=== PATIENT | male | born 1935 | race Caucasian/White ===

== ENCOUNTER → 2020-07-02 12:47 | Outpatient (CLI) | payer MEDICARE, OTHER, SELFPAY ==
--- NOTE | 2020-07-02 12:49 | CDU_ITS ---
Reason For Study: CAROTID STENOSIS, PREV RT CEA Rt. Velocities/BP Lt. Velocities/BP Prox CCA 119.8/15.7 cm/sec. Prox CCA 149.0/24.8 cm/sec. Mid CCA 110.7/13.9 cm/sec. Mid CCA 116.2/21.2 cm/sec. Dist CCA 134.3/12.0 cm/sec. Dist CCA 121.6/19.4 cm/sec. Prox ICA 143.4/19.3 cm/sec. Prox ICA 114.3/24.8 cm/sec. Mid ICA 94.1/26.6 cm/sec. Mid ICA 152.7/37.6 cm/sec. Dist ICA 83.0/16.7 cm/sec. Dist ICA 183.5/38.6 cm/sec. Rt. ICA/CCA = 143.4/134.3=1.1. Lt. ICA/CCA = 183.5/149.0=1.2. Prox ECA 134.3/8.4 cm/sec. Prox ECA 182.8/9.4 cm/sec. Rt. Vert. 52.6/10.9 cm/sec. Lt. Vert. 87.1/15.8 cm/sec. Right Extracranial There is homogeneous, smooth atherosclerotic plaque noted in the right common carotid artery. There is homogeneous, smooth atherosclerotic plaque noted in the right internal carotid artery. There is heterogeneous, irregular atherosclerotic plaque noted in the right external carotid artery. Antegrade flow is noted in the right vertebral artery. Left Extracranial There is heterogeneous, irregular atherosclerotic plaque noted in the left common carotid artery. There is heterogeneous, irregular atherosclerotic plaque noted in the left internal carotid artery. There is homogeneous, smooth atherosclerotic plaque noted in the left external carotid artery. Antegrade flow is noted in the left vertebral artery. There is heterogeneous, irregular atherosclerotic plaque noted in the left bulb. Procedure Carotid Duplex [id number]. The exam was diagnostic. Exam performed in department. Interpretation Summary Postoperative changes of the right carotid bulb and proximal internal carotid artery with smooth plaque identified and 50 to 69% stenosis. No flow turbulence is identified this is likely postoperative changes. Less than 50% stenosis right external carotid Irregular calcific plaque with shadowing at the left carotid bulb and proximal internal carotid with 50 to 69% stenosis. Less than 50% stenosis left external carotid Patent and antegrade vertebrals bilaterally Ordering Physician: Karen Davis Referring Physician: Karen Davis Performed By: Tanya Noe, MARY, RVT
--- NOTE | 2020-07-02 12:49 | ECHOCS_ITS ---
Reason For Study: Aortic Stenosis Procedure This was a 2D Doppler, Color Flow transthoracic echocardiogram. The study was technically difficult. Contrast injection was performed. Exam performed in department. Left Ventricle Normal LV size. Left ventricular systolic function is normal. The estimated ejection fraction is 65 %. Stage 1 diastolic dysfunction. No regional wall motion abnormalities noted. Right Ventricle Normal RV size. Normal systolic function. Atria Normal left atrium. Normal right atrium. Mitral Valve Normal mitral valve. Tricuspid Valve Normal tricuspid valve. Mild tricuspid valve insufficiency. Pulmonary artery systolic pressure is 30 mmHg. Aortic Valve Trisinus/trileaflet aortic valve. Mild diffuse aortic valve thickening. Mild (1+) aortic valve insufficiency. Pulmonic Valve The pulmonic valve is not well visualized. Great Vessels Normal aortic root. The pulmonary artery is normal size. Normal inferior vena cava. Pericardium/Pleural No pericardial effusion. Medication 22 gauge I.V. with prn adaptor inserted into right arm. Diluted definity 2ml given slow IV push to enhance endocardial definition. MMode/2D Measurements & Calculations LVIDd: 4.5 cm IVSd: 1.1 cm Ao root diam: 2.9 cm LVIDs: 2.9 cm LVPWd: 0.92 cm LA dimension: 4.1 cm FS: 36.4 % LAV(MOD-bp): 53.1 ml LA A4 area: 18.7 cm2 RA A4 area: 12.3 cm2 LAV(MOD-bp) Indexed: 28.3 ml/m2 LAV(MOD-sp2): 54.2 ml LAV(MOD-sp4): 53.3 ml Time Measurements MV dec time: 0.33 sec Doppler Measurements & Calculations MV E max kaden: 98.1 cm/sec Lat Peak E' Kaden: 6.5 cm/sec Med Peak E' Kaden: 6.3 cm/sec MV A max kaden: 110.0 cm/sec E/E' lat: 15.2 E/E' med: 15.7 MV E/A: 0.89 MV V2 max: 133.9 cm/sec MV P1/2t max kaden: 124.2 cm/sec Ao V2 max: 179.8 cm/sec MV max P.2 mmHg MV P1/2t: 69.7 msec Ao max P.9 mmHg MV V2 mean: 67.0 cm/sec MV dec slope: 522.1 cm/sec2 Ao V2 mean: 120.8 cm/sec MV mean P.2 mmHg Ao mean P.8 mmHg MV V2 VTI: 43.3 cm MVA(P1/2t): 3.2 cm2 Ao V2 VTI: 42.0 cm AI max kaden: 400.2 cm/sec LV V1 max: 98.7 cm/sec PA V2 max: 103.0 cm/sec AI max P.3 mmHg LV V1 max P.9 mmHg AI dec slope: 205.2 cm/sec2 LV V1 mean P.4 mmHg AI P1/2t: 571.3 msec LV V1 mean: 73.6 cm/sec LV V1 VTI: 22.7 cm TR max kaden: 252.3 cm/sec TR max P.5 mmHg Interpretation Summary Normal LV size. Left ventricular systolic function is normal. The estimated ejection fraction is 65 %. Mild diffuse aortic valve thickening. Stage 1 diastolic dysfunction. Contrast injection was performed. Ordering Physician: Karen Davis Referring Physician: Karen Davis Performed By: Ariel Teixeira RCS
== END ==
PROVIDERS: PCP Internal Medicine; Referring Provider Internal Medicine; Visit Provider Internal Medicine
DX: I35.0 Nonrheumatic aortic (valve) stenosis (principal); I65.23 Occlusion and stenosis of bilateral carotid arteries
CPT/HCPCS: 93306; 93880; Q9957; A4216; C8929

== ENCOUNTER → 2020-07-22 14:30 | Outpatient (CLI) | payer MEDICARE, OTHER, SELFPAY | PROVIDERS: PCP Internal Medicine; Referring Provider Internal Medicine; Visit Provider Internal Medicine | DX: N39.0 Urinary tract infection, site not specified (principal) | CPT/HCPCS: 87086; 87088; 87186 ==

== ENCOUNTER 2020-07-25 09:38 | Outpatient (RCR) | payer MEDICARE, OTHER, SELFPAY | END 2020-07-25 23:59 | LOC: IMMUN 09:38 | PROVIDERS: PCP Internal Medicine; Visit Provider Family Medicine | DX: Z23 Encounter for immunization (principal) | CPT/HCPCS: 0011A; 0012A; 91301 ==

== ENCOUNTER 2020-08-28 13:00 | Outpatient (RCR) | payer MEDICARE, OTHER, SELFPAY ==
--- NOTE | 2020-08-01 10:06 | HP.PTEVAL_ITS ---
Patient's Visit Information MIKEY STEWART is a 85 year old M referred to Physical Therapy by Dr. Karen Davis MD with a diagnosis of R shoulder, bicipital tendonitis. Date of Evaluation: 07/30/20 Physical Therapist: Ramos Abdalla DPT - Visit Plan Frequency: 2x /Week Duration: 4 Weeks Plan: Start with DFM to biceps tendon, ROM, scapular strengthening and biceps strengthening/ tendon remodeling. - Subjective Pt. is here today for his initial evaluation with diagnosis of R bicpital tendonitis. Pt. reports having increased pain for few years, but has become worse more recently. Pt. reports increased pain with lifting, raising his arm and reaching behind his back. Pt. does not recall any mech of injury with his shoulder, but more of a gradual onset of his symptoms. He mancilla not tried any exercises at this point in time. He denies N/T, he is till able to lift his arm overhead his and reports that his ROM is good, but his arm hurts from time to time. Pt. is having some trouble sleeping as well. 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 - Pain R shoulder Pain Intensity (Out of 10): 2 Pain Intensity Range: 0, 5 Comment: anterior aspect - Objective POSTURE: pt. hs FH and rounded shoulder posture bilaterally. He is able to improve with VC/TCing, but reverts back to this positioning quickly. PALPATION: Pt. has tenderness along bicipital groove and at anterior/lateral aspect of R shoulder. NEURO: normal sensation, normal DTR of BUEs. No signs of neuro involvement. ROM: AROM R shoulder- flexion 170deg mild increase in symptoms with over pressure. Abd 170deg NE, IR L3 mild increase NW, functional ER C4 mild increase NW. MMT: R shoulder- flexion 4+/5, abd 4+/5, ER 4+/5 mild increase in symptoms, IR 4+/5 NE, ext 4+/5 NE, elbow flexion 5/5 NE, ext 5/5 NE, supination 4+/5 mild increase NW. - Special Tests R Shoulder Drop Sign - IS Test: Negative R Shoulder Empty Can - SS: Negative R Shoulder Belly Press - SupScap: Negative R Shoulder Neer - Impingement: Positive R Shoulder Garcia Bridger - Impingement: Positive R Shoulder Biceps Load Test - Labrum: Negative R Shoulder Speeds Test - Labrum/Biceps: Positive - Goals Goal 1:: LTG: Pt. to be I with HEP. Goal Time Frame: 4-6 Weeks Goal 2:: STG: pt. to sleep without increase in symptoms. Goal Time Frame: 4-6 Weeks Goal 3:: STG: pt. to have full AROM of R shoulder without increase in symptoms. Goal Time Frame: 2-4 Weeks Goal 4:: LTG: Pt. to have incerased R shoulder strength by 1/2 grade of all effected musculature. 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 Goal Time Frame: 4-6 Weeks - Rehabilitation Potential Physical Therapy Diagnosis: Pt. has signs and symptoms consistent with R shoulder biceps tendonitis. Pt. has marked pain at anterior shoulder, increased pain with stress to biceps tendon. He has good RTC strength and stability. Pt. would benefit from PT to work on his ROM, exercises to increase tensile strength of his biceps tendon and restore his full ROM. Rehabilitation Potential: Excellent - Anticipated Interventions Patient/Client Instruction: Educate patient on: Condition, Plan of Care, Risk Factors, Benefits of Fitness Program For the Purpose of:: To facilitate caregiver knowledge, To improve self management, To prevent re-injury, To improve ability to perform tasks related to life management, To improve tolerance to ADL's Therapeutic Exercise to Include: Strength training, Power training, Endurance training, Postural training, Flexibilty training, Passive ROM, Active ROM, Scapular Strength/Stabilization For the Purpose of:: To decrease pain, To decrease swelling/inflammation, To increase ROM, To improve nutrient delivery to tissue, To increase oxygenation perfusion, To improve muscle performance and motor function, To improve ability to perform ADL's, To increase tolerance to activity/condition/position, To decrease soft tissue restriction, To increase flexibility/ROM Manual Therapy Techniques to Include: Trigger point massage, Mobilization, Functional dry needling, Soft tissue mobilization For the Purpose of:: To decrease pain, To decrease swelling/inflammation, To increase ROM, To improve nutrient delivery to tissue Ultrasound (thermal/non thermal): Yes For the Purpose of:: To decrease pain, To decrease swelling/inflammation, To increase ROM Thank you for the opportunity to evaluate your patient. For Medicare and Medicare O plans, please review the plan of care and approve it. It will need to be FAXED BACK to us at [phone] for Medicare purposes. For Medicare only, by signing this I certify the plan of care. Please let me know if there are questions or concerns regarding this plan of care. Physician Signature: Date:
--- NOTE | 2020-08-29 12:34 | HP.PTREVAL ---
Dr. Karen Davis MD, It has been my pleasure to treat MIKEY STEWART over the last 8 visits for R shoulder, bicipital tendonitis. Please see the progress note below for an update on the physical therapy plan of care! Subjective: Pt. reports overall I am doing pretty well, I still have some pain if I move my arm wrong.' Pt. reports being 85% better. Pt. reports being HEP compliant. Pain noted with shoulder IR and with extension. Objective/Function: ROM: Pt. has good ROM throughout R shoulder, initially had increased symtoms with functional IR, improved with stretching and with US. HE has good strength throughout BUEs as well. He will completed HEP on his own and follow up with PT in 2-3 weeks if needed. Plan Plan: Pt. to start HEP on his own for 2-3 weeks. If I do not hear from him dring this time I will DC back to physician. Goals Goal 1:: LTG: Pt. to be I with HEP. Goal Time Frame: 4-6 Weeks Goal Progress: Goal Met Goal 2:: STG: pt. to sleep without increase in symptoms. Goal Time Frame: 4-6 Weeks Goal Progress: Goal Met Goal 3:: STG: pt. to have full AROM of R shoulder without increase in symptoms. Goal Time Frame: 2-4 Weeks Goal Progress: Progressing Goal 4:: LTG: Pt. to have incerased R shoulder strength by 1/2 grade of all effected musculature. 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 Goal Time Frame: 4-6 Weeks Goal Progress: Progressing Anticipated Interventions Patient/Client Instruction: Educate patient on: Condition, Plan of Care, Risk Factors, Benefits of Fitness Program For the Purpose of:: To facilitate caregiver knowledge, To improve self management, To prevent re-injury, To improve ability to perform tasks related to life management, To improve tolerance to ADL's Therapeutic Exercise to Include: Strength training, Power training, Endurance training, Postural training, Flexibilty training, Passive ROM, Active ROM, Scapular Strength/Stabilization For the Purpose of:: To decrease pain, To decrease swelling/inflammation, To increase ROM, To improve nutrient delivery to tissue, To increase oxygenation perfusion, To improve muscle performance and motor function, To improve ability to perform ADL's, To increase tolerance to activity/condition/position, To decrease soft tissue restriction, To increase flexibility/ROM Manual Therapy Techniques to Include: Trigger point massage, Mobilization, Functional dry needling, Soft tissue mobilization For the Purpose of:: To decrease pain, To decrease swelling/inflammation, To increase ROM, To improve nutrient delivery to tissue Ultrasound (thermal/non thermal): Yes For the Purpose of:: To decrease pain, To decrease swelling/inflammation, To increase ROM Please do not hesitate to contact me at [phone] by phone or if you have questions or concerns regarding this new plan of care! Sincerely, GUY NassarT
== END 2020-08-28 19:00 | disposition home or self-care (01) ==
LOC: PT 13:00
PROVIDERS: PCP Internal Medicine; Visit Provider Internal Medicine
DX: M75.21 Bicipital tendinitis, right shoulder (principal)
CPT/HCPCS: 97035; 97110; 97161; 97164

== ENCOUNTER → 2020-12-09 10:19 | Outpatient (CLI) | payer MEDICARE, OTHER, SELFPAY ==
[2020-12-03 13:01] VITALS: BMI 24.3
[2020-12-09 11:55] LABS: Absolute Lymphocyte Count 1.48 X10^3/uL (0.83-4.51); Absolute Neutrophil Count 2.1 X10^3/uL (2.0-7.7); Basophil# 0.03 X10^3/uL; Basophil% 0.7 % (0-1); Eosinophil# 0.15 X10^3/uL; Eosinophils% 3.6 % (0-5); Hematocrit 41.4 % (40-54); Hemoglobin 13.4 g/dL (13.0-16.5); Lymphocyte # 1.48 X10^3/ul (0.83-4.51); Lymphocyte % 35.8 % (19-41); Mean Corp Hgb Conc 32.4 g/dL (32-36); Mean Corpuscular Hgb 32.5 pg (27.0-32.0); Mean Corpuscular Volume 100.5 fL (80-94); Mean Platelet Vol. 9.9 fl (6.2-12.0); Monocyte# 0.38 X10^3/uL; Monocyte% 9.2 % (0-10); NRBC Flagged by Analyzer 0 % (0-5); Neutrophil # 2.08 X10^3/uL (2.7-7.7); Neutrophil % 50.5 % (47-70); Platelet Count 192 K/mm3 (150-450); RBC Distribution Width CV 11.4 % (11.6-14.6); RBC Distribution Width SD 41.7 fl (35.1-43.9); Red Blood Count 4.12 M/mm3 (4.6-6.2); White Blood Count 4.1 K/mm3 (4.4-11.0)
[2020-12-09 12:24] LABS: ALB/GLOB Ratio 1.1 RATIO (0.9-2.4); AST(SGOT) 12 U/L (15-37); Alanine Aminotransfer ALT/SGPT 24 U/L (16-61); Albumin, Serum 3.7 g/dL (3.2-5.0); Alkaline Phosphatase 55 U/L (45-117); Anion Gap 4 (5-15); BUN 25 mg/dL (7-18); BUN/Creat Ratio 22.9 RATIO (10-20); Calcium,Total 9.2 mg/dL (8.5-10.1); Chloride 107 mmol/L (98-107); Cholesterol 146 mg/dL (200); Creatinine, Serum 1.09 mg/dL (0.70-1.30); EST Glomerular Filtration Rate 69 mL/min (>60); Est Glom Filt Rate - Afr Amer 83 mL/min (>60); Free T3 1.9 pg/mL (2.18-3.98); Globulin 3.3 g/dL (2.2-4.2); Glucose 82 mg/dL (74-106); High Density Lipoprotein 62 mg/dL; PSA,Total - Annual Screen 3.67 ng/mL (0.00-4.00); Potassium 4.4 mmol/L (3.5-5.1); Sodium Level 142 mmol/L (136-145); T4 Free Direct 0.85 ng/dL (0.76-1.46); Thyroid Stim Hormone (TSH) 1.61 uIU/mL (0.358-3.74); Triglycerides 89 mg/dL; Very Low Density Lipoprotein 18 mg/dL (5-40)
== END ==
PROVIDERS: PCP Internal Medicine; Referring Provider Internal Medicine; Visit Provider Internal Medicine
DX: E03.9 Hypothyroidism, unspecified (principal); N31.9 Neuromuscular dysfunction of bladder, unspecified; I10 Essential (primary) hypertension; E78.5 Hyperlipidemia, unspecified; M10.9 Gout, unspecified; I65.23 Occlusion and stenosis of bilateral carotid arteries; J45.909 Unspecified asthma, uncomplicated; Z78.9 Other specified health status; Z12.5 Encounter for screening for malignant neoplasm of prostate; E55.9 Vitamin D deficiency, unspecified
CPT/HCPCS: 36415; 80053; 80061; 82306; 84153; 84439; 84443; 84481; 85025; G0103

== ENCOUNTER → 2020-12-11 15:22 | Outpatient (CLI) | payer MEDICARE, OTHER, SELFPAY ==
[2020-12-03 13:01] VITALS: BMI 24.3
[2020-12-11 17:05] LABS: Vitamin B12 588 pg/mL (211-911)
== END ==
PROVIDERS: PCP Internal Medicine; Referring Provider Physician Assistant; Visit Provider Physician Assistant
DX: D75.89 Other specified diseases of blood and blood-forming organs (principal)
CPT/HCPCS: 36415; 82607; 82746

== ENCOUNTER → 2021-02-09 15:27 | Outpatient (CLI) | payer MEDICARE, OTHER, SELFPAY ==
[2021-02-09 15:03] VITALS: BMI 24.3
[2021-02-09 15:32] LABS: Bacteria 0 SEEN /hpf (None Seen); Mucous, Urine 0 SEEN /hpf (<or=2+); Red Blood Cells-Urine 0 SEEN /hpf (0-5); Squamous Epithelial Cells - UA 0 SEEN /hpf (0-5); White Blood Cells 0 SEEN /hpf (0-5)
[2021-02-09 16:39] LABS: Color, Urine Yellow (Yellow); Glucose, Dipstick Normal (Normal); Ketone-Dipstick Negative (Negative); Leukocyte Esterase-Dipstick Negative /ul (Negative); Nitrite-Dipstick Negative (Negative); Occult Blood-Urine Negative /ul (Negative); Protein-Dipstick Negative (Negative); Urine Bilirubin Dipstick Negative (Negative); Urine Clarity Clear (Clear); Urine Urobilinogen Normal (Normal); Urine pH 6.5 (5.0 - 8.0)
== END ==
PROVIDERS: PCP Internal Medicine; Referring Provider Internal Medicine; Visit Provider Internal Medicine
DX: N39.0 Urinary tract infection, site not specified (principal); Z78.9 Other specified health status
CPT/HCPCS: 81001; 87086; 87088

== ENCOUNTER → 2021-06-11 13:53 | Outpatient (CLI) | payer MEDICARE, OTHER, SELFPAY ==
[2021-06-11 15:44] LABS: Free T3 1.9 pg/mL (2.18-3.98); T4 Free Direct 0.88 ng/dL (0.76-1.46); Thyroid Stim Hormone (TSH) 3.13 uIU/mL (0.358-3.74)
== END ==
PROVIDERS: PCP Internal Medicine; Referring Provider Internal Medicine; Visit Provider Internal Medicine
DX: E03.9 Hypothyroidism, unspecified (principal)
CPT/HCPCS: 36415; 84439; 84443; 84481

== ENCOUNTER 2021-07-15 08:42 | Outpatient (CLI) | payer MEDICARE, OTHER, SELFPAY ==
--- NOTE | 2021-07-15 08:44 | CDU_ITS ---
Reason For Study: Bilateral carotid stenosis Rt. Velocities/BP Lt. Velocities/BP Prox CCA 128.4/20.6 cm/sec. Prox CCA 90/15.1 cm/sec. Mid CCA 91.9/18.8 cm/sec. Mid CCA 93.6/17 cm/sec. Dist CCA 95.5/20.6 cm/sec. Dist CCA 86.3/17 cm/sec. Prox ICA 93.7/17 cm/sec. Prox ICA 90/22.4 cm/sec. Mid ICA 88.2/24.3 cm/sec. Mid ICA 167.4/46.7 cm/sec. Dist ICA 80.9/20.6 cm/sec. Dist ICA 106/27 cm/sec. Rt. ICA/CCA = 1.0. Lt. ICA/CCA = 1.9. Prox ECA 112/13.3 cm/sec. Prox ECA 142.9/7.8 cm/sec. Rt. Vert. 60.8/15.2 cm/sec. Lt. Vert. 59/17 cm/sec. Right Extracranial There is homogeneous, smooth atherosclerotic plaque noted in the right common carotid artery. There is homogeneous, smooth atherosclerotic plaque noted in the right internal carotid artery. There is homogeneous, irregular atherosclerotic plaque noted in the right external carotid artery. Antegrade flow is noted in the right vertebral artery. Left Extracranial There is homogeneous, smooth atherosclerotic plaque noted in the left common carotid artery. There is heterogeneous, irregular atherosclerotic plaque noted in the left internal carotid artery. The atherosclerotic plaque causes acoustic shadowing. There is homogeneous, smooth atherosclerotic plaque noted in the left external carotid artery. Antegrade flow is noted in the left vertebral artery. Procedure Carotid Duplex [id number]. This is a Carotid Duplex examination using B-mode, color flow and specral Doppler. Exam performed in department. VL/Carotid Duplex Ultrasound Interpretation Summary Smooth plaque at the proximal right internal carotid artery with less than 50% stenosis. Postoperative changes noted Less than 50% stenosis right external carotid artery Irregular calcific plaque at the proximal left internal carotid artery with 50 to 69% stenosis left mid internal carotid artery Less than 50% stenosis left external carotid artery Patent and antegrade vertebral arteries bilaterally No clinically significant change from the previous examination of July 02, 2020 Ordering Physician: Pieter Elizabeth Referring Physician: Karen hutchinson Performed By: Jennifer Soriano RVT
== END 2021-07-15 23:59 | disposition short-term general hospital (02) ==
LOC: CVS 08:43
PROVIDERS: PCP Internal Medicine; Referring Provider Surgery; Visit Provider Surgery
DX: I65.23 Occlusion and stenosis of bilateral carotid arteries (principal)
CPT/HCPCS: 93880

== ENCOUNTER → 2021-12-10 | Outpatient (CLI) | payer MEDICARE, OTHER, SELFPAY ==
[2021-12-10 15:09] LABS: Absolute Neutrophil Count 4.3 X10^3/uL (2.0-7.7); Basophil# 0.02 X10^3/uL; Basophil% 0.3 % (0-1); Eosinophil# 0.16 X10^3/uL; Eosinophils% 2.6 % (0-5); Lymphocyte % 19.5 % (19-41); Mean Corp Hgb Conc 32.6 g/dL (32-36); Mean Corpuscular Hgb 32.9 pg (27.0-32.0); Mean Corpuscular Volume 101.2 fL (80-94); Monocyte# 0.46 X10^3/uL; Monocyte% 7.5 % (0-10); NRBC Flagged by Analyzer 0 % (0-5); Neutrophil # 4.28 X10^3/uL (2.7-7.7); Neutrophil % 69.6 % (47-70); Platelet Count 208 K/mm3 (150-450); RBC Distribution Width CV 11.9 % (11.6-14.6); RBC Distribution Width SD 44.5 fl (35.1-43.9); Red Blood Count 4.25 M/mm3 (4.6-6.2); White Blood Count 6.2 K/mm3 (4.4-11.0)
[2021-12-10 15:42] LABS: ALB/GLOB Ratio 1.3 RATIO (0.9-2.4); AST(SGOT) 15 U/L (15-37); Alanine Aminotransfer ALT/SGPT 29 U/L (16-61); Albumin, Serum 3.9 g/dL (3.2-5.0); Alkaline Phosphatase 48 U/L (45-117); Anion Gap 4 (5-15); BUN 20 mg/dL (7-18); BUN/Creat Ratio 16.9 RATIO (10-20); Calcium,Total 9.1 mg/dL (8.5-10.1); Chloride 106 mmol/L (98-107); Cholesterol 152 mg/dL (200); Creatinine, Serum 1.18 mg/dL (0.70-1.30); EST Glomerular Filtration Rate 62 mL/min (>60); Est Glom Filt Rate - Afr Amer 76 mL/min (>60); Glucose 87 mg/dL (74-106); High Density Lipoprotein 70 mg/dL; PSA,Total - Annual Screen 5.01 ng/mL (0.00-4.00); Potassium 4.1 mmol/L (3.5-5.1); Protein, Total 6.9 g/dL (6.4-8.2); Sodium Level 140 mmol/L (136-145); Thyroid Stim Hormone (TSH) 3.34 uIU/mL (0.358-3.74); Triglycerides 122 mg/dL; Very Low Density Lipoprotein 24 mg/dL (5-40)
== END | disposition home or self-care (01) ==
LOC: BIMLAB 14:00
PROVIDERS: PCP Internal Medicine; Visit Provider Internal Medicine
DX: E03.9 Hypothyroidism, unspecified (principal); I10 Essential (primary) hypertension; Z12.5 Encounter for screening for malignant neoplasm of prostate
CPT/HCPCS: 36415; 80053; 80061; 84153; 84443; 85025; G0103

== ENCOUNTER → 2022-01-25 | Outpatient (CLI) | payer MEDICARE, OTHER, SELFPAY ==
[2022-01-25 11:46] LABS: Erythrocyte Sedimentation Rate 6 mm/hr (0-20)
[2022-01-25 12:13] LABS: ALB/GLOB Ratio 1.2 RATIO (0.9-2.4); AST(SGOT) 18 U/L (15-37); Alanine Aminotransfer ALT/SGPT 22 U/L (16-61); Albumin, Serum 3.8 g/dL (3.2-5.0); Alkaline Phosphatase 55 U/L (45-117); Anion Gap 4 (5-15); BUN 24 mg/dL (7-18); BUN/Creat Ratio 19.2 RATIO (10-20); CPK Total, Creatine Kinase 96 U/L (39-308); CRP < 2.90 mg/L (0.0-3.0); Calcium,Total 9.3 mg/dL (8.5-10.1); Chloride 106 mmol/L (98-107); Creatinine, Serum 1.25 mg/dL (0.70-1.30); EST Glomerular Filtration Rate 58 mL/min (>60); Est Glom Filt Rate - Afr Amer 71 mL/min (>60); Globulin 3.2 g/dL (2.2-4.2); Glucose 101 mg/dL (74-106); Magnesium 2.1 mg/dL (1.6-2.6); Potassium 4.3 mmol/L (3.5-5.1); Sodium Level 139 mmol/L (136-145)
[2022-01-25 12:17] LABS: D-Dimer Quantitative (DVT/PE) 0.52 FEU/ug/m (0.27-0.49)
== END | disposition home or self-care (01) ==
LOC: LAB 11:06
PROVIDERS: PCP Internal Medicine; Visit Provider Internal Medicine
DX: M79.604 Pain in right leg (principal); M79.605 Pain in left leg
CPT/HCPCS: 36415; 80053; 82550; 83735; 85379; 85652; 86140

== ENCOUNTER → 2022-01-26 | Outpatient (CLI) | payer MEDICARE, OTHER, SELFPAY ==
--- NOTE | 2022-01-26 14:53 | VDLE_ITS ---
Reason For Study: Elevated D-dimer RIGHT LEFT GSV is normal. GSV is normal. CFV is compressible, spontaneous, phasic, CFV is compressible, spontaneous, phasic, competent and demonstrates normal competent, and demonstrates normal augmentation. augmentation. FV is compressible, spontaneous, phasic, FV is compressible, spontaneous, phasic, competent and demonstrates normal competent and demonstrates normal augmentation. augmentation. POP V is compressible, spontaneous, phasic, POP V is compressible, spontaneous, phasic, competent and demonstrates normal competent and demonstrates normal augmentation. augmentation. T/P Trunk is compressible. T/P Trunk is compressible. PTV is compressible. PTV is compressible. RT PerV is compressible. LT PerV is compressible. Procedure This is a venous duplex using B-mode, color flow and spectral Doppler. Exam performed in department. A preliminary report was called and/or faxed to [facility]. VL/Venous Duplex US - Ac Extrem Interpretation Summary No evidence for acute deep venous thrombosis bilateral lower extremities with p atent and compressible bilateral great saphenous veins. Ordering Physician: Karen Davis Referring Physician: Karen Davis M.D. Performed By: Jennifer Soriano RVT
== END | disposition home or self-care (01) ==
LOC: CVS 14:51
PROVIDERS: PCP Internal Medicine; Visit Provider Internal Medicine
DX: M79.604 Pain in right leg (principal); M79.605 Pain in left leg
CPT/HCPCS: 93970

== ENCOUNTER → 2022-04-09 | Outpatient (CLI) | payer MEDICARE, OTHER, SELFPAY ==
[2022-04-09 09:29] LABS: Erythrocyte Sedimentation Rate 4 mm/hr (0-20)
[2022-04-09 09:43] LABS: Anion Gap 7 (5-15); BUN 24 mg/dL (7-18); Calcium,Total 9.5 mg/dL (8.5-10.1); Chloride 107 mmol/L (98-107); Creatinine, Serum 1.26 mg/dL (0.70-1.30); EST Glomerular Filtration Rate 58 mL/min (>60); Est Glom Filt Rate - Afr Amer 70 mL/min (>60); Glucose 85 mg/dL (74-106); Potassium 4.1 mmol/L (3.5-5.1); Sodium Level 141 mmol/L (136-145); Uric Acid 8.4 mg/dL (3.5-7.2)
== END | disposition home or self-care (01) ==
LOC: LAB 08:55
PROVIDERS: PCP Internal Medicine; Visit Provider Internal Medicine
DX: M10.9 Gout, unspecified (principal)
CPT/HCPCS: 36415; 80048; 84550; 85652

== ENCOUNTER → 2022-07-12 | Outpatient (CLI) | payer MEDICARE, OTHER, SELFPAY ==
--- NOTE | 2022-07-12 13:03 | CDU_ITS ---
Reason For Study: Carotid Stenosis Rt. Velocities/BP Lt. Velocities/BP Prox CCA 105.8/14.6 cm/sec. Prox CCA 119.8/19.4 cm/sec. Mid CCA 101.4/20.1 cm/sec. Mid CCA 97.9/17.5 cm/sec. Dist CCA 103.6/20.1 cm/sec. Dist CCA 88.8/19.4 cm/sec. Prox ICA 99.2/22.3 cm/sec. Prox ICA 119.8/23.0 cm/sec. Mid ICA 108.3/15.2 cm/sec. Mid ICA 154.5/34.0 cm/sec. Dist ICA 86.1/21.2 cm/sec. Dist ICA 128.9/24.8 cm/sec. Rt. ICA/CCA = 1.1. Lt. ICA/CCA = 1.6. Prox ECA 85.3/10.7 cm/sec. Prox ECA 152.7/12.1 cm/sec. Rt. Vert. 47.6/12.4 cm/sec. Lt. Vert. 65.8/11.9 cm/sec. Right Extracranial There is homogeneous, smooth atherosclerotic plaque noted in the right common carotid artery. There is heterogeneous, smooth atherosclerotic plaque noted in the right internal carotid artery. There is heterogeneous, irregular atherosclerotic plaque noted in the right external carotid artery. Antegrade flow is noted in the right vertebral artery. Left Extracranial There is homogeneous, smooth atherosclerotic plaque noted in the left common carotid artery. There is heterogeneous, irregular atherosclerotic plaque noted in the left internal carotid artery. The atherosclerotic plaque causes acoustic shadowing. There is heterogeneous, smooth atherosclerotic plaque noted in the left external carotid artery. Antegrade flow is noted in the left vertebral artery. Procedure Carotid Duplex [id number]. This is a Carotid Duplex examination using B-mode, color flow and specral Doppler. The exam was diagnostic. Exam performed in department. VL/Carotid Duplex Ultrasound Interpretation Summary Postoperative changes of the right carotid bulb and proximal internal carotid a rtery with less than 50% stenosis right internal carotid Less than 50% stenosis right external carotid Irregular plaque at the proximal left internal carotid with 50 to 69% stenosis Less than 50% stenosis left external carotid Patent antegrade vertebrals bilaterally Ordering Physician: Pieter Elizabeth Referring Physician: Karen Davis M.D. Performed By: Dharmesh Zamora RVT
== END | disposition home or self-care (01) ==
LOC: CVS 12:54
PROVIDERS: PCP Internal Medicine; Referring Provider Surgery; Visit Provider Surgery
DX: I65.23 Occlusion and stenosis of bilateral carotid arteries (principal)
CPT/HCPCS: 93880

== ENCOUNTER 2022-09-16 16:00 | Outpatient (RCR) | payer MEDICARE, OTHER, SELFPAY ==
--- NOTE | 2022-06-21 14:28 | HP.PTEVAL_ITS ---
Patient's Visit Information MIKEY STEWART is a 86 year old M referred to Physical Therapy by Dr. Karen Davis MD with a diagnosis of Bilateral LE Pain. Date of Evaluation: 06/21/22 Physical Therapist: Leydi Goldman DPT - Visit Plan Frequency: 2x /Week Duration: 4 Weeks Plan: IE: Focus on LE and Core s/s. HEP Given IE: Postural education, lumbar roll, TA Contraction - Subjective Patient reports he has been having pain in bilateral hamstring pain-6-8 weeks or longer- some days its better than others- depends- he started at the [employer] a few weeks ago and did some biking and tried to use the hamstring curl machine- it didn't help so he went to see the MD. No x-rays or medications just sent him to PT. Pain is located in the ischial tuberosity and radiates to the mid thigh- describes the pain as dull and achy. Worst: 8/10 Agg: getting up from sitting but he can feel it anytime throughout the day. It gradually gets worse throughout the day. If he was active at the [employer] he was better but overdid it last week and it was more painful. Best: 0/10 Eases: rubs it. 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 Has had issues with his back on/off for a long time. Couple of times he has had injections but has not had one in 4-5 years. Mostly right sided issues- he has had MRI and x-rays- no back surgeries. He has no N/T in his toes. No loss or change in bowel or bladder (self [id number] a day). Sleep: slightly disturbed- side sleeper- back and forth- usually stiff in the AM. He was doing some stretches (LTR, Bridge, SKTC, DKTC) in the AM and he stopped that to see what PT suggestion is. He also has exercises- sit ups and knee bends. He is pretty active. Caregiver for his . No falls or leg weakness. PMHx/Meds: 06/09/22 no changes since PCP visit. - Objective Posture: FH, RS, increased kyphosis- can correct with tactile cues but does not maintain. Stairs: asc/desc 8 recip with 1 HR- poor eccentric control. Gait: no deviation in LE- guarded in core- decreased trunk rotation. HR/TR: able with UE A. SLS: 2 seconds each side ROM: lumbar: severe restriction, Exnt: neutral, SB: severe, Rot: severe Hip/Knee/Ankle: WFL Strength: Core: poor, Hip: 4-/5 throughout Knee: 4+/5, Ankle: 5/5. Flex: HS: severe, Gastroc: severe. Palpation: tender to touch on the left and right parapsinals of the lumbar spine- along the sacrum and gluts bilateral. Tender along ischial tuberosity Reflex: WFL at bilateral patella. Sensation: WFL to gross touch bilateral LE - Special Tests L/S Slump test left side: Positive L/S Slump test right side: Positive L/S Left Straight Leg Raise: Positive L/S Right Straight Leg Raise: Positive R Hip DANIEL - Intraarticular Pathology: Positive R Hip FADDIR - Labrum: Positive L Hip DANIEL - Intraarticular Pathology: Positive L Hip FADDIR - Labrum: Positive - Balance/Special Test Scores Lower Extremity Functional Score: 53 - Goals Goal 1:: Patient will be I with HEP and progression Goal Time Frame: 4-6 Weeks Goal 2:: Patient will maintain proper posture t/o tx session to demo increased core s/s Goal Time Frame: 4-6 Weeks Goal 3:: Patient will report 80% improvement Goal Time Frame: 4-6 Weeks Goal 4:: Patient will SLS for 5 sec without loss of balance bilaterally Goal Time Frame: 4-6 Weeks - Rehabilitation Potential Physical Therapy Diagnosis: Patient presents with hypomobility- he has decreased LE and core strength/stabilization, flex and muscular endurance leading to poor posture and increased pain with ADL's Rehabilitation Potential: Fair - Anticipated Interventions Patient/Client Instruction: Educate patient on: Benefits of Fitness Program Therapeutic Exercise to Include: Strength training, Endurance training, Balance training, Coordination, Agility training, Body mechanics, Postural training, Flexibilty training, Gait and locomotor training, Neuromotor development, Dynamic Lumbar Stabilization, Scapular Strength/Stabilization For the Purpose of:: To improve muscle performance and motor function Cryotherapy (ice pack, ice massage): Yes Thermo therapy (hot pack): Yes Thank you for the opportunity to evaluate your patient. For Medicare and Medicare HMO plans, please review the plan of care and approve it. It will need to be FAXED BACK to us at [phone] for Medicare purposes. For Medicare only, by signing this I certify the plan of care. Please let me know if there are questions or concerns regarding this plan of care. Physician Signature: Date:
--- NOTE | 2022-07-20 12:56 | HP.PTREVAL ---
Dr. Karen Davis MD, It has been my pleasure to treat MIKEY STEWART over the last 8 visits for Bilateral LE Pain. Please see the progress note below for an update on the physical therapy plan of care! Subjective: Patient reports that he is in the middle of a UTI- he was 30-40% better. Most pain in the last week 11/10. He is still walking at the [facility] and working on the machines. He has pain in the hamstrings still all the time. Objective/Function: Posture: FH, RS, increased kyphosis- can correct with tactile cues and maintains for longer periods. Stairs: asc/desc 8 recip with 1 HR- fair eccentric control. Gait: no deviation in LE-- good trunk rotation-mild PPT HR/TR: able with UE A. SLS: 10-15 seconds each side ROM: lumbar: severe restriction, Exnt: neutral, SB: severe, Rot: severe Hip/Knee/Ankle: WFL Strength: Core: poor, Hip: 4/5 throughout Knee: 5/5, Ankle: 5/5. Flex: HS: severe, Gastroc: severe. Reflex: WFL at bilateral patella. Sensation: WFL to gross touch bilateral LE. - Special Tests. L/S Slump test left side: Positive. L/S Slump test right side: Positive. L/S Left Straight Leg Raise: Positive. L/S Right Straight Leg Raise: Positive. R Hip DANIEL - Intraarticular Pathology: Positive. R Hip FADDIR - Labrum: Positive. L Hip DANIEL - Intraarticular Pathology: Positive. L Hip FADDIR - Labrum: Positive Plan Plan: 07/20/22: Continue with POC 2x a week for 4 additional weeks- focus on core strength/stabilization. IE: Focus on LE and Core s/s. HEP Given IE: Postural education, lumbar roll, TA Contraction Balance/Gait/Functional tests - Balance/Special Test Scores Lower Extremity Functional Score: 58 Goals Goal 1:: Patient will be I with HEP and progression Goal Time Frame: 4-6 Weeks Goal Progress: Progressing Goal 2:: Patient will maintain proper posture t/o tx session to demo increased core s/s Goal Time Frame: 4-6 Weeks Goal Progress: Progressing Goal 3:: Patient will report 80% improvement Goal Time Frame: 4-6 Weeks Goal Progress: Progressing Goal 4:: Patient will SLS for 5 sec without loss of balance bilaterally Goal Time Frame: 4-6 Weeks Anticipated Interventions Patient/Client Instruction: Educate patient on: Benefits of Fitness Program Therapeutic Exercise to Include: Strength training, Endurance training, Balance training, Coordination, Agility training, Body mechanics, Postural training, Flexibilty training, Gait and locomotor training, Neuromotor development, Dynamic Lumbar Stabilization, Scapular Strength/Stabilization For the Purpose of:: To improve muscle performance and motor function Cryotherapy (ice pack, ice massage): Yes Thermo therapy (hot pack): Yes Please do not hesitate to contact me at [phone] by phone or if you have questions or concerns regarding this new plan of care! Sincerely, GUY ChowT
--- NOTE | 2023-01-13 17:07 | HP.PT.NRP ---
Patient Information Patient Information: MIKEY STEWART was seen in my office for initial evaluation on 06/21/22. The following Plan of Care was established for this patient: POC Established Initial Frequency: 2x /Week Initial Duration: 4 Weeks Anticipated Interventions Patient/Client Instruction: Educate patient on: Benefits of Fitness Program Therapeutic Exercise to Include: Strength training, Endurance training, Balance training, Coordination, Agility training, Body mechanics, Postural training, Flexibilty training, Gait and locomotor training, Neuromotor development, Dynamic Lumbar Stabilization and Scapular Strength/Stabilization For the Purpose of:: To improve muscle performance and motor function Cryotherapy (ice pack, ice massage): Yes Thermo therapy (hot pack): Yes Last Seen Last Seen: This patient was last seen in our office . Pertinent comments regarding their Physical therapy will appear below: Patient continues to be I with home exercise program, At this point I will be discontinuing this patient from physical therapy. I would be happy to see this patient again in the future if found appropriate by the physician. Thank you! Leydi Goldman, GUYT Balance/Gait/Functional tests Balance/Special Test Scores Lower Extremity Functional Score: 58
== END 2022-09-16 19:00 | disposition home or self-care (01) ==
LOC: PT 16:00
PROVIDERS: PCP Internal Medicine; Referring Provider Internal Medicine; Visit Provider Internal Medicine
DX: M62.9 Disorder of muscle, unspecified (principal); M79.604 Pain in right leg; M79.605 Pain in left leg
CPT/HCPCS: 97110; 97162; 97164

== ENCOUNTER → 2022-11-25 | Outpatient (CLI) | payer MEDICARE, OTHER, SELFPAY ==
--- NOTE | 2022-11-25 12:48 | CT_ITS ---
EXAM: CT ABDOMEN AND PELVIS WITHOUT INTRAVENOUS CONTRAST CLINICAL INDICATION: HEMATURIA TECHNIQUE: Helically acquired images were obtained of the abdomen and pelvis without intravenous contrast. This CT exam was performed using one or more of the following dose reduction techniques: automated exposure control, adjustment of the mA and/or kV according to patient size, and/or use of iterative reconstruction technique. RADIATION DOSE: CTDIvol = 7.60 mGy, DLP = 427.24 mGy-cm COMPARISON: No relevant prior studies available. FINDINGS: LOWER THORAX: Heavily calcified left coronary artery and branches versus stents, milder appearance involving right coronary artery, mild aortic valve region calcifications. Mild linear bands of atelectasis in the lung bases. No cardiomegaly. No significant pericardial effusion. ABDOMEN: LIVER: Unremarkable. Homogeneous. GALLBLADDER AND BILE DUCTS: Presumed cholecystectomy. No bile duct dilatation. PANCREAS: Unremarkable. No focal cystic mass. SPLEEN: Unremarkable. Normal size without focal cystic or solid mass. ADRENALS: Unremarkable. No nodules. KIDNEYS AND URETERS: Moderately thick walled urinary bladder despite mild distention, the urinary bladder is 6 cm craniocaudal with 1.1 cm maximum thickness wall, especially anteriorly. No hydronephrosis or ureter stone. 20 nonobstructing stone in the right kidney. Normal renal size and position. STOMACH AND BOWEL: Moderate gas and minimal fluid distending the stomach. No small bowel dilatation. Moderate stool in the proximal half of the colon, minimal gas and stool in the distal colon. Scattered diverticulosis in the hepatic flexure and adjacent segments, no evidence of acute diverticulitis. PELVIS: APPENDIX: Nonvisualized appendix obvious pericecal inflammation. BLADDER: Unremarkable. REPRODUCTIVE: Mild prostatomegaly, transverse diameter 5.3 cm. ABDOMEN and PELVIS: INTRAPERITONEAL SPACE: Unremarkable. No ascites or other fluid collection. No free air. BONES/JOINTS: Moderate degenerative spine changes, marked disc space narrowing, vacuum disc and moderate spondylosis at L2-S1 with straightening of the usual lordotic curvature. Mild ventral thecal sac flattening at L2-3 due to osteophytes. No suspicious lytic or blastic abnormality. SOFT TISSUES: Unremarkable. No discrete abdominal or pelvic wall hernia. VASCULATURE: Peripheral calcification of aortoiliac vessels mild calcifications at the origins of the celiac axis and SMA. LYMPH NODES: Unremarkable. No enlarged lymph nodes. CT/Abdomen/Pelvis without Cont IMPRESSION: 1. Moderately thick walled urinary bladder despite mild distention, suspicion of cystitis. Cannot exclude underlying bladder dysplasia or neoplasm. The unenhanced exam. 2. Tiny nonobstructing intrarenal stone in the right kidney. No hydronephrosis or ureter stone. 3. Mild prostatomegaly. 4. Nonvisualized appendix and gallbladder. 5. Aortic valve calcifications and advanced coronary artery calcifications and/or stents. Electronically Signed: Debi Beasley MD at 6:19 EDT ,
== END | disposition home or self-care (01) ==
PROVIDERS: PCP Internal Medicine; Referring Provider Registered Nurse; Visit Provider Registered Nurse
DX: N30.20 Other chronic cystitis without hematuria (principal)
CPT/HCPCS: 74176

== ENCOUNTER → 2022-12-01 | Outpatient (CLI) | payer MEDICARE, OTHER, SELFPAY ==
[2022-12-01 15:04] LABS: Absolute Lymphocyte Count 1.54 X10^3/uL (0.83-4.51); Absolute Neutrophil Count 4.1 X10^3/uL (2.0-7.7); Basophil# 0.03 X10^3/uL; Basophil% 0.5 % (0-1); Eosinophil# 0.31 X10^3/uL; Eosinophils% 4.7 % (0-5); Hematocrit 37.8 % (40-54); Hemoglobin 12.5 g/dL (13.0-16.5); Lymphocyte # 1.54 X10^3/ul (0.83-4.51); Lymphocyte % 23.5 % (19-41); Mean Corp Hgb Conc 33.1 g/dL (32-36); Mean Corpuscular Hgb 33.3 pg (27.0-32.0); Mean Corpuscular Volume 100.8 fL (80-94); Mean Platelet Vol. 9.3 fl (6.2-12.0); Monocyte# 0.53 X10^3/uL; Monocyte% 8.1 % (0-10); NRBC Flagged by Analyzer 0 % (0-5); Neutrophil % 62.7 % (47-70); Platelet Count 289 K/mm3 (150-450); RBC Distribution Width CV 11.8 % (11.6-14.6); RBC Distribution Width SD 43.1 fl (35.1-43.9); Red Blood Count 3.75 M/mm3 (4.6-6.2); White Blood Count 6.5 K/mm3 (4.4-11.0)
[2022-12-01 15:48] LABS: Vitamin D,25 Hydroxy 75.8 ng/mL
[2022-12-01 15:56] LABS: ALB/GLOB Ratio 0.9 RATIO (0.9-2.4); AST(SGOT) 15 U/L (15-37); Alanine Aminotransfer ALT/SGPT 26 U/L (16-61); Albumin, Serum 3.2 g/dL (3.2-5.0); Alkaline Phosphatase 57 U/L (45-117); Anion Gap 6 (5-15); BUN 20 mg/dL (7-18); BUN/Creat Ratio 15.4 RATIO (10-20); Calcium,Total 9.3 mg/dL (8.5-10.1); Chloride 104 mmol/L (98-107); Cholesterol 135 mg/dL (200); EST Glomerular Filtration Rate 56 mL/min (>60); Est Glom Filt Rate - Afr Amer 67 mL/min (>60); Free T3 1.9 pg/mL (2.18-3.98); Globulin 3.7 g/dL (2.2-4.2); Glucose 107 mg/dL (74-106); High Density Lipoprotein 53 mg/dL; PSA,Total- Diagnostic 8.05 ng/mL (0.0-4.0); Potassium 4.4 mmol/L (3.5-5.1); Protein, Total 6.9 g/dL (6.4-8.2); Sodium Level 138 mmol/L (136-145); T4 Free Direct 0.94 ng/dL (0.76-1.46); Thyroid Stim Hormone (TSH) 1.72 uIU/mL (0.358-3.74); Triglycerides 237 mg/dL; Very Low Density Lipoprotein 47 mg/dL (5-40)
== END | disposition home or self-care (01) ==
LOC: LAB 14:14
PROVIDERS: PCP Internal Medicine; Referring Provider Urology; Visit Provider Urology
DX: R97.20 Elevated prostate specific antigen [PSA] (principal); M62.9 Disorder of muscle, unspecified; N31.9 Neuromuscular dysfunction of bladder, unspecified; I10 Essential (primary) hypertension; E03.9 Hypothyroidism, unspecified; N39.0 Urinary tract infection, site not specified; Z78.9 Other specified health status; E55.9 Vitamin D deficiency, unspecified
CPT/HCPCS: 80053; 80061; 82306; 84153; 84439; 84443; 84481; 85025

== ENCOUNTER → 2022-12-07 | Outpatient (CLI) | payer MEDICARE, OTHER, SELFPAY | END | disposition home or self-care (01) | LOC: LABSPEC 12:35 | PROVIDERS: PCP Internal Medicine; Referring Provider Internal Medicine; Visit Provider Internal Medicine | DX: D64.9 Anemia, unspecified (principal) | CPT/HCPCS: 82274 ==

== ENCOUNTER → 2022-12-08 | Outpatient (CLI) | payer MEDICARE, OTHER, SELFPAY | END | disposition home or self-care (01) | LOC: LABSPEC 13:42 | PROVIDERS: PCP Internal Medicine; Referring Provider Internal Medicine; Visit Provider Internal Medicine | DX: D64.9 Anemia, unspecified (principal) | CPT/HCPCS: 82274 ==

== ENCOUNTER → 2023-04-08 | Outpatient (CLI) | payer MEDICARE, OTHER, SELFPAY ==
[2023-04-08 13:06] LABS: ALB/GLOB Ratio 1.1 RATIO (0.9-2.4); AST(SGOT) 11 U/L (15-37); Alanine Aminotransfer ALT/SGPT 24 U/L (16-61); Albumin, Serum 3.5 g/dL (3.2-5.0); Alkaline Phosphatase 51 U/L (45-117); Anion Gap 4 (5-15); BUN 19 mg/dL (7-18); BUN/Creat Ratio 15.3 RATIO (10-20); Calcium,Total 9.2 mg/dL (8.5-10.1); Chloride 107 mmol/L (98-107); Creatinine, Serum 1.24 mg/dL (0.70-1.30); EST Glomerular Filtration Rate 59 mL/min (>60); Est Glom Filt Rate - Afr Amer 71 mL/min (>60); Globulin 3.1 g/dL (2.2-4.2); Glucose 98 mg/dL (74-106); Potassium 4.2 mmol/L (3.5-5.1); Protein, Total 6.6 g/dL (6.4-8.2); Sodium Level 140 mmol/L (136-145); Uric Acid 7.5 mg/dL (3.5-7.2)
== END | disposition home or self-care (01) ==
LOC: LAB 11:38
PROVIDERS: PCP Internal Medicine; Referring Provider Internal Medicine; Visit Provider Internal Medicine
DX: M10.9 Gout, unspecified (principal); E03.9 Hypothyroidism, unspecified; I10 Essential (primary) hypertension
CPT/HCPCS: 36415; 80053; 84550

== ENCOUNTER → 2023-04-26 | Outpatient (CLI) | payer MEDICARE, OTHER, SELFPAY ==
--- NOTE | 2023-04-26 14:14 | RAD_ITS ---
STUDY: X-RAY - LUMBAR SPINE REASON FOR EXAM: Male, 87 years old. Pain TECHNIQUE: 2 view(s) of the lumbar spine were obtained. COMPARISON: None FINDINGS: Normal lumbar lordosis. There is no substantial scoliosis. There is a normal alignment of the vertebrae. There is multilevel endplate spondylosis of the lumbar vertebrae. There is multi-level degenerative disc disease with multi-level disc space narrowing. There is atherosclerotic calcification of the abdominal aorta without a demonstrated aneurysm. RAD/Lumbar Spine 2 or 3 Views IMPRESSION: Degenerative changes of the spine, as detailed above. Electronically Signed: Jose Lopez MD at 14:48 EDT ,
--- NOTE | 2023-04-26 14:14 | RAD_ITS ---
STUDY: X-RAY - PELVIS AND RIGHT HIP REASON FOR EXAM: Male, 87 years old. Chronic hip pain. TECHNIQUE: 3 views of the pelvis and hip. COMPARISON: None. FINDINGS: There is a non-specific bowel gas pattern. Normal visualized soft tissue structures. Normal bilateral iliac wings, sacroiliac joints and visualized sacrum. Normal bilateral superior and inferior pubic rami. Normal pubic symphysis. Normal bilateral ischial tuberosities. 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 There is cortical sclerosis with sub-cortical cyst formation of the acetabulum. There is moderate articular joint space narrowing of the hip. 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 Electronically Signed: Jose Lopez MD at 14:45 EDT ,
== END | disposition home or self-care (01) ==
LOC: MTRAD 14:14
PROVIDERS: PCP Internal Medicine; Referring Provider Physician Assistant; Visit Provider Physician Assistant
DX: M54.50 Low back pain, unspecified (principal); M25.551 Pain in right hip
CPT/HCPCS: 72100; 73502

== ENCOUNTER → 2023-07-21 | Outpatient (CLI) | payer MEDICARE, OTHER, SELFPAY ==
--- NOTE | 2023-07-21 09:59 | CDU_ITS ---
Reason For Study: Carotid artery stenosis Rt. Velocities/BP Lt. Velocities/BP Prox CCA 101.1/17.6 cm/sec. Prox CCA 115.6/13.3 cm/sec. Mid CCA 112.1/17.6 cm/sec. Mid CCA 104.7/13.3 cm/sec. Dist CCA 98.6/15.1 cm/sec. Dist CCA 106.5/13.3 cm/sec. Prox ICA 112/17 cm/sec. Prox ICA 115.6/18.8 cm/sec. Mid ICA 102.8/22.5 cm/sec. Mid ICA 174.4/34.5 cm/sec. Dist ICA 95.5/24.3 cm/sec. Dist ICA 143/26.1 cm/sec. Rt. ICA/CCA = 1.11. Lt. ICA/CCA = 1.64. Prox ECA 128.4/7.9 cm/sec. Prox ECA 152.1 cm/sec. Rt. Vert. 67.4/13.5 cm/sec. Lt. Vert. 68.5/12.4 cm/sec. Right Extracranial There is homogeneous, smooth atherosclerotic plaque noted in the right common carotid artery. There is homogeneous, smooth atherosclerotic plaque noted in the right internal carotid artery. There is heterogeneous, irregular atherosclerotic plaque noted in the right external carotid artery. Antegrade flow is noted in the right vertebral artery. Left Extracranial There is homogeneous, smooth atherosclerotic plaque noted in the left common carotid artery. There is heterogeneous, irregular atherosclerotic plaque noted in the left internal carotid artery. There is heterogeneous, irregular atherosclerotic plaque noted in the left external carotid artery. Antegrade flow is noted in the left vertebral artery. Procedure Carotid Duplex 00722. This is a Carotid Duplex examination using B-mode, color flow and specral Doppler. Exam performed in department. VL/Carotid Duplex Ultrasound Interpretation Summary Smooth plaque at the proximal right internal carotid artery with less than 50% stenosis Less than 50% stenosis right external carotid artery Irregular plaque at the proximal left internal carotid artery With 50 to 69% stenosis Less than 50% stenosis left external carotid artery Patent antegrade vertebral arteries bilaterally No change from July 12, 2022 Ordering Physician: Pieter Elizabeth Referring Physician: Karen Davis M.D. Performed By: Jennifer Soriano RVT
== END | disposition home or self-care (01) ==
LOC: CVS 09:58
PROVIDERS: PCP Internal Medicine; Referring Provider Surgery; Visit Provider Surgery
DX: I65.23 Occlusion and stenosis of bilateral carotid arteries (principal)
CPT/HCPCS: 93880

== ENCOUNTER → 2023-08-22 | Outpatient (CLI) | payer OTHER, MEDICARE, SELFPAY ==
--- NOTE | 2023-08-22 08:51 | AAVD_ITS ---
Reason For Study: Screening for aneurysm Aorta Measurements Aorta Doppler Measurements Proximal aorta measures1.60 x 1.58cm. in cross- Peak systolic flow velocities within the proximal sectional axis. aorta measure 110.4 cm/sec. Proximal aorta measures1.61cm. in longitudinal Peak systolic flow velocities within the mid aorta axis. measure 119.4 cm/sec. Mid aorta measures1.31 x 1.31cm. in cross- Peak systolic flow velocities within the distal sectional axis. aorta measure 124.9 cm/sec. Mid aorta measures1.31cm. in longitudinal axis. Distal aorta measures1.48 x 1.46cm. in cross- sectional axis. Distal aorta measures1.46cm. in longitudinal axis. Left Iliac Artery Left iliac artery measures 0.93 x 0.92 cm. in the cross-sectional axis. Left iliac artery measures 0.92 cm. in the longitudinal axis. Peak systolic velocity in the left iliac artery measures 139.7 cm/sec. Right Iliac Artery Right iliac artery measures 0.90 x 0.90 cm. in the cross-sectional axis. Right iliac artery measures 0.91 cm. in the longitudinal axis. Peak systolic velocity in the right iliac artery measures 129.3 cm/sec. Procedure Aorta IVC Iliac vasculature or bypass grafts 59062. Exam performed in department. VL/Abd Aortic/IVC Duplex scan Interpretation Summary Maximal aortic diameter proximally at 1.6 x 1.58 cm diameter which is normal Slightly elevated velocity flow within the abdominal aorta at maximum 124.9 cm/ s Normal left common neck artery at 0.93 x 0.92 cm in diameter Normal right common iliac artery at 0.9 x 0.9 cm in diameter Ordering Physician: Pieter Elizabeth Referring Physician: Karen Davis M.D. Performed By: Jennifer Soriano RVT
== END | disposition home or self-care (01) ==
LOC: CVS 08:50
PROVIDERS: PCP Internal Medicine; Referring Provider Surgery; Visit Provider Surgery
DX: I10 Essential (primary) hypertension (principal)
CPT/HCPCS: 93978

== ENCOUNTER → 2023-10-26 | Outpatient (CLI) | payer MEDICARE, OTHER, SELFPAY ==
[2023-10-26 12:30] LABS: Bacteria 0 SEEN /hpf (None Seen); Mucous, Urine 0 SEEN /hpf (<or=2+); Red Blood Cells-Urine 0 SEEN /hpf (0-5); Squamous Epithelial Cells - UA 0 SEEN /hpf (0-5); White Blood Cells 0 SEEN /hpf (0-5)
[2023-10-26 13:07] LABS: Color, Urine Yellow (Yellow); Glucose, Dipstick Normal (Normal); Ketone-Dipstick Negative (Negative); Leukocyte Esterase-Dipstick 25 /ul (Negative); Nitrite-Dipstick Negative (Negative); Occult Blood-Urine 10 /ul (Negative); Protein-Dipstick 15 mg/dl (Negative); Urine Bilirubin Dipstick Negative (Negative); Urine Clarity Clear (Clear); Urine Urobilinogen Normal (Normal)
== END | disposition home or self-care (01) ==
LOC: LAB 12:26
PROVIDERS: PCP Internal Medicine; Referring Provider Internal Medicine; Visit Provider Internal Medicine
DX: N31.9 Neuromuscular dysfunction of bladder, unspecified (principal); N39.0 Urinary tract infection, site not specified
CPT/HCPCS: 81001

== ENCOUNTER → 2023-12-29 | Outpatient (CLI) | payer MEDICARE, OTHER, SELFPAY ==
[2023-12-29 12:38] LABS: Absolute Neutrophil Count 2.3 X10^3/uL (2.0-7.7); Basophil# 0.04 X10^3/uL; Basophil% 0.9 % (0-1); Eosinophil# 0.73 X10^3/uL; Eosinophils% 15.7 % (0-5); Hematocrit 36.6 % (40-54); Hemoglobin 12.1 g/dL (13.0-16.5); Lymphocyte % 25.9 % (19-41); Mean Corp Hgb Conc 33.1 g/dL (32-36); Mean Corpuscular Hgb 33.1 pg (27.0-32.0); Mean Platelet Vol. 9.8 fl (6.2-12.0); Monocyte# 0.34 X10^3/uL; Monocyte% 7.3 % (0-10); NRBC Flagged by Analyzer 0 % (0-5); Neutrophil # 2.32 X10^3/uL (2.7-7.7); Platelet Count 196 K/mm3 (150-450); RBC Distribution Width CV 11.5 % (11.6-14.6); RBC Distribution Width SD 42.5 fl (35.1-43.9); Red Blood Count 3.66 M/mm3 (4.6-6.2); White Blood Count 4.6 K/mm3 (4.4-11.0)
[2023-12-29 13:06] LABS: Vitamin B12 922 pg/mL (211-911); Vitamin D,25 Hydroxy 51.4 ng/mL
[2023-12-29 13:22] LABS: ALB/GLOB Ratio 1.2 RATIO (0.9-2.4); AST(SGOT) 16 U/L (15-37); Alanine Aminotransfer ALT/SGPT 21 U/L (16-61); Albumin, Serum 3.5 g/dL (3.2-5.0); Alkaline Phosphatase 56 U/L (45-117); Anion Gap 6 (5-15); BUN 20 mg/dL (7-18); BUN/Creat Ratio 15.2 RATIO (10-20); Calcium,Total 8.7 mg/dL (8.5-10.1); Chloride 106 mmol/L (98-107); Creatinine, Serum 1.32 mg/dL (0.70-1.30); EST Glomerular Filtration Rate 55 mL/min (>60); Est Glom Filt Rate - Afr Amer 66 mL/min (>60); Free T3 1.8 pg/mL (2.18-3.98); Globulin 2.9 g/dL (2.2-4.2); Glucose 127 mg/dL (74-106); Protein, Total 6.4 g/dL (6.4-8.2); Sodium Level 139 mmol/L (136-145); T4 Free Direct 0.89 ng/dL (0.76-1.46); Thyroid Stim Hormone (TSH) 2.29 uIU/mL (0.358-3.74)
[2023-12-29 15:06] LABS: Iron 93 ug/dL (65-175); Iron Binding Capacity,Total 263 ug/dL (250-450); PERCENT IRON SATURATION 35.4 % (15.0-55.0)
== END | disposition home or self-care (01) ==
LOC: LAB 11:54
PROVIDERS: PCP Internal Medicine; Referring Provider Internal Medicine; Visit Provider Internal Medicine
DX: D64.9 Anemia, unspecified (principal); E03.9 Hypothyroidism, unspecified; E78.5 Hyperlipidemia, unspecified; I10 Essential (primary) hypertension; E53.8 Deficiency of other specified B group vitamins; E55.9 Vitamin D deficiency, unspecified
CPT/HCPCS: 36415; 80053; 82306; 82607; 83540; 83550; 84439; 84443; 84481; 85025

== ENCOUNTER → 2024-01-16 | Outpatient (CLI) | payer MEDICARE, OTHER, SELFPAY ==
--- NOTE | 2024-01-16 13:04 | ECHOD_ITS ---
Reason For Study: NONRHEUMATIC Procedure This was a 2D Doppler, Color Flow transthoracic echocardiogram. Exam performed in department. Left Ventricle Normal LV size. The estimated ejection fraction is 65 %. Unable to assess diastolic dysfunction. No regional wall motion abnormalities noted. Right Ventricle Normal RV size. Normal systolic function. Atria The left and right atria are normal. No doppler evidence for ASD. Mitral Valve Bileaflet diffuse mitral valve thickening. There is moderate mitral annular calcification. There is no mitral valve stenosis. No mitral valve insufficiency. Tricuspid Valve There is no tricuspid stenosis. Trivial tricuspid valve insufficiency. Pulmonary artery systolic pressure is 30 mmHg. Aortic Valve Trisinus/trileaflet aortic valve. Aortic sclerosis, no stenosis. There is no aortic stenosis. Trivial aortic valve insufficiency. Pulmonic Valve There is no pulmonic valvular stenosis. No pulmonic valve insufficiency. Great Vessels Normal aortic root. Pericardium/Pleural No pericardial effusion. MMode/2D Measurements & Calculations LVIDd: 3.8 cm IVSd: 1.0 cm LVOT diam: 2.0 cm LVIDs: 2.4 cm LVPWd: 1.2 cm LVOT area: 3.2 cm2 RVDd: 3.3 cm FS: 37.7 % LAV(MOD-sp4): 41.6 ml LVAd ap4: 23.4 cm2 SV(MOD-sp4): 37.4 ml LVLd ap4: 7.3 cm EDV(MOD-sp4): 61.8 ml EDV(sp4-el): 64.0 ml LVAs ap4: 12.9 cm2 LVLs ap4: 5.6 cm ESV(MOD-sp4): 24.4 ml ESV(sp4-el): 25.2 ml EF(MOD-sp4): 60.5 % EF(sp4-el): 60.6 % SV(sp4-el): 38.8 ml LA A4 area: 17.2 cm2 LA dimension(2D): 3.5 cm RA A4 area: 14.1 cm2 TAPSE: 1.6 cm Time Measurements MV dec time: 0.17 sec Doppler Measurements & Calculations MV E max kaden: 100.2 cm/sec Lat Peak E' Kaden: 6.3 cm/sec Med Peak E' Kaden: 4.7 cm/sec MV A max kaden: 121.6 cm/sec E/E' lat: 15.8 E/E' med: 21.5 MV E/A: 0.82 MV V2 max: 121.1 cm/sec Ao V2 max: 193.8 cm/sec MV max P.9 mmHg MV dec slope: 642.8 cm/sec2 Ao max P.1 mmHg MV V2 mean: 66.6 cm/sec Ao V2 mean: 112.2 cm/sec MV mean P.2 mmHg Ao mean P.7 mmHg MV V2 VTI: 41.1 cm Ao V2 VTI: 43.5 cm AV (velocity ratio): 0.95 MVA(VTI): 3.2 cm2 MARGARITA(I,D): 3.0 cm2 MARGARITA(V,D): 2.8 cm2 AI max kaden: 433.6 cm/sec LV V1 max: 170.3 cm/sec SV(LVOT): 130.2 ml AI max P.2 mmHg LV V1 max P.6 mmHg LV V1 mean P.7 mmHg AI dec slope: 253.6 cm/sec2 LV V1 mean: 104.2 cm/sec AI P1/2t: 500.8 msec LV V1 VTI: 41.3 cm PA V2 max: 82.1 cm/sec TR max kaden: 256.3 cm/sec PA V2 mean: 56.3 cm/sec TR max P.3 mmHg ECHO/Echo Complete Interpretation Summary The estimated ejection fraction is 65 %. Unable to assess diastolic dysfunction. Trivial aortic valve insufficiency. Ordering Physician: Karen Davis Referring Physician: Karen Davis Performed By: Emeli Banda RCS
== END | disposition home or self-care (01) ==
LOC: CVS 13:02
PROVIDERS: PCP Internal Medicine; Referring Provider Internal Medicine; Visit Provider Internal Medicine
DX: I35.2 Nonrheumatic aortic (valve) stenosis with insufficiency (principal)
CPT/HCPCS: 93306

== ENCOUNTER → 2024-02-02 | Outpatient (CLI) | payer MEDICARE, OTHER, SELFPAY ==
[2024-02-02 12:42] LABS: Absolute Lymphocyte Count 1.41 X10^3/uL (0.83-4.51); Absolute Neutrophil Count 3.5 X10^3/uL (2.0-7.7); Basophil# 0.05 X10^3/uL; Basophil% 0.8 % (0-1); Eosinophil# 0.62 X10^3/uL; Hematocrit 39.8 % (40-54); Hemoglobin 12.6 g/dL (13.0-16.5); Lymphocyte # 1.41 X10^3/ul (0.83-4.51); Lymphocyte % 22.6 % (19-41); Mean Corp Hgb Conc 31.7 g/dL (32-36); Mean Corpuscular Hgb 32.2 pg (27.0-32.0); Mean Corpuscular Volume 101.8 fL (80-94); Mean Platelet Vol. 10.1 fl (6.2-12.0); Monocyte# 0.61 X10^3/uL; Monocyte% 9.8 % (0-10); NRBC Flagged by Analyzer 0 % (0-5); Neutrophil # 3.53 X10^3/uL (2.7-7.7); Neutrophil % 56.6 % (47-70); Platelet Count 185 K/mm3 (150-450); RBC Distribution Width CV 11.7 % (11.6-14.6); RBC Distribution Width SD 43.5 fl (35.1-43.9); Red Blood Count 3.91 M/mm3 (4.6-6.2); White Blood Count 6.2 K/mm3 (4.4-11.0)
== END | disposition home or self-care (01) ==
LOC: LAB 11:55
PROVIDERS: PCP Internal Medicine; Referring Provider Internal Medicine; Visit Provider Internal Medicine
DX: D64.9 Anemia, unspecified (principal)
CPT/HCPCS: 36415; 85025

== ENCOUNTER → 2024-02-14 | Outpatient (CLI) | payer MEDICARE, OTHER, SELFPAY ==
[2024-02-14 17:04] LABS: PSA,Total - Annual Screen 1.74 ng/mL (0.00-4.00)
== END | disposition home or self-care (01) ==
LOC: RAD 15:41
PROVIDERS: PCP Internal Medicine; Referring Provider Urology; Visit Provider Urology
DX: R97.20 Elevated prostate specific antigen [PSA] (principal)
CPT/HCPCS: 36415; 84153; G0103

== ENCOUNTER → 2024-03-30 | Outpatient (CLI) | payer MEDICARE, OTHER, SELFPAY ==
--- NOTE | 2024-03-30 16:00 | RAD_ITS ---
INDICATION: PAIN EXAMINATION/TECHNIQUE: X-RAY - XR Spine Thoracic 5 Views COMPARISON: FINDINGS: VERTEBRAE: Preserved vertebral body height. No fracture. Degenerative spurring and bridging osteophytes at the vertebral endplates. No spondylolisthesis. Preservation of the normal thoracic kyphosis. No significant facet arthropathy. DISCS: Disc spaces are maintained. INCLUDED CHEST/ABDOMEN: No acute abnormalities. RAD/Thoracic Spine Min 4 Views IMPRESSION: No evidence of thoracic spinal fracture or spondylolisthesis. Degenerative vertebral changes. Electronically Signed: Thiago Vega DO at 16:15 EDT ,
== END | disposition home or self-care (01) ==
LOC: MTRAD 15:59
PROVIDERS: PCP Internal Medicine; Referring Provider Anesthesiology Pain Medicine; Visit Provider Anesthesiology Pain Medicine
DX: M54.9 Dorsalgia, unspecified (principal)
CPT/HCPCS: 72074

== ENCOUNTER → 2024-09-12 | Outpatient (CLI) | payer MEDICARE, OTHER, SELFPAY ==
--- NOTE | 2024-09-12 14:55 | CDU_ITS ---
Reason For Study Reason For Study: One year follow up Rt. Velocities/BP Lt. Velocities/BP Prox CCA 118.2/22.5 cm/sec. Prox CCA 116.2/10.2 cm/sec. Mid CCA 119.3/24.3 cm/sec. Mid CCA 108.9/15.7 cm/sec. Dist CCA 126.6/24.3 cm/sec. Dist CCA 103.4/15.7 cm/sec. Prox ICA 113.3/14.5 cm/sec. Prox ICA 139.9/24.8 cm/sec. Mid ICA 97.9/26.7 cm/sec. Mid ICA 170.3/38.6 cm/sec. Dist ICA 77.8/19.4 cm/sec. Dist ICA 84.2/20.4 cm/sec. Rt. ICA/CCA = 0.9. Lt. ICA/CCA = 1.7. Prox ECA 160.9/11.6 cm/sec. Prox ECA 145.4/0.0 cm/sec. Rt. Vert. 47.9/10.6 cm/sec. Lt. Vert. 63.4/16.7 cm/sec. Right Extracranial There is homogeneous, smooth atherosclerotic plaque noted in the right common carotid artery. There is heterogeneous, irregular atherosclerotic plaque noted in the right internal carotid artery. There is heterogeneous, irregular atherosclerotic plaque noted in the right external carotid artery. Antegrade flow is noted in the right vertebral artery. Left Extracranial There is heterogeneous, irregular atherosclerotic plaque noted in the left common carotid artery. There is heterogeneous, irregular atherosclerotic plaque noted in the left internal carotid artery. There is intimal thickening but no significant atherosclerotic plaque noted in the left external carotid artery. Antegrade flow is noted in the left vertebral artery. Procedure Carotid Duplex 43271. This is a Carotid Duplex examination using B-mode, color flow and specral Doppler. Exam performed in department. VL/Carotid Duplex Ultrasound Interpretation Summary Mild (<50%) stenosis right extracranial internal carotid. Moderate (50-69%) stenosis left extracranial internal carotid. Patent and antegrade vertebrals bilaterally. Ordering Physician: Ronny Ramos Referring Physician: Karen Davis M.D. Performed By: Jennifer Soriano RVT and Student
== END | disposition home or self-care (01) ==
LOC: CVS 14:54
PROVIDERS: PCP Internal Medicine; Referring Provider Surgery Trauma Surgery; Visit Provider Surgery Trauma Surgery
DX: I65.23 Occlusion and stenosis of bilateral carotid arteries (principal)
CPT/HCPCS: 93880

== ENCOUNTER → 2025-01-24 | Outpatient (CLI) | payer MEDICARE, OTHER, SELFPAY ==
[2025-01-24 14:17] LABS: Hematocrit 38.6 % (40-54); Hemoglobin 12.5 g/dL (13.0-16.5); Immature Granulocytes Count 0.010 X10^3/uL (0.0-0.0); Mean Corp Hgb Conc 32.4 g/dL (32-36); Mean Corpuscular Volume 102.4 fL (80-94); Mean Platelet Vol. 10.2 fl (6.2-12.0); NRBC Flagged by Analyzer 0 % (0-5); Platelet Count 162 K/mm3 (150-450); RBC Distribution Width CV 12.2 % (11.6-14.6); RBC Distribution Width SD 46.2 fl (35.1-43.9); Red Blood Count 3.77 M/mm3 (4.6-6.2); White Blood Count 5.2 K/mm3 (4.4-11.0)
[2025-01-24 15:24] LABS: AST(SGOT) 20 U/L (<=37); Alanine Aminotransfer ALT/SGPT 27 U/L (<=46); Albumin, Serum 4.0 g/dL (3.4-4.8); Alkaline Phosphatase 55 U/L (40-129); Anion Gap 12 (5-15); BUN 27 mg/dL (4-19); BUN/Creat Ratio 18.8 RATIO (10-20); Calcium,Total 9.5 mg/dL (7.6-11.0); Carbon Dioxide 24.2 mmol/L (21.0-32.0); Chloride 104 mmol/L (98-108); Cholesterol 140 mg/dL (<=200); Free T3 2.4 pg/mL (2.18-3.98); Globulin 2.3 g/dL (2.2-4.2); Glucose 106 mg/dL (70-99); Low Density Lipoprotein Calc. 52 mg/dL; Magnesium 2.1 mg/dL (1.5-2.2); Potassium 4.2 mmol/L (3.3-5.1); Triglycerides 97 mg/dL; Uric Acid 7.1 mg/dL (3.5-7.2); Very Low Density Lipoprotein 19 mg/dL (5-40); Vitamin B12 699 pg/mL (180-914); Vitamin D,25 Hydroxy 47.4 ng/mL (30-100); cholesterol:hdl ratio screen 2.03
== END | disposition home or self-care (01) ==
LOC: LAB 13:39
PROVIDERS: PCP Internal Medicine; Referring Provider Internal Medicine; Visit Provider Internal Medicine
DX: E03.9 Hypothyroidism, unspecified (principal); I77.9 Disorder of arteries and arterioles, unspecified; I10 Essential (primary) hypertension; N31.9 Neuromuscular dysfunction of bladder, unspecified; E78.5 Hyperlipidemia, unspecified; M10.9 Gout, unspecified; E55.9 Vitamin D deficiency, unspecified; I65.23 Occlusion and stenosis of bilateral carotid arteries; Z13.220 Encounter for screening for lipoid disorders
CPT/HCPCS: 36415; 80053; 80061; 82306; 82607; 83735; 84439; 84443; 84481; 84550; 85025

== ENCOUNTER → 2025-02-05 | Outpatient (CLI) | payer MEDICARE, OTHER, SELFPAY ==
[2025-02-05 13:10] LABS: Anion Gap 10 (5-15); BUN 15 mg/dL (4-19); BUN/Creat Ratio 13.1 RATIO (10-20); Calcium,Total 9.5 mg/dL (7.6-11.0); Carbon Dioxide 25.1 mmol/L (21.0-32.0); Chloride 105 mmol/L (98-108); Glucose 122 mg/dL (70-99); Potassium 4.4 mmol/L (3.3-5.1)
== END | disposition home or self-care (01) ==
LOC: LAB 12:13
PROVIDERS: PCP Internal Medicine; Referring Provider Internal Medicine; Visit Provider Internal Medicine
DX: R79.89 Other specified abnormal findings of blood chemistry (principal)
CPT/HCPCS: 36415; 80048

== ENCOUNTER → 2025-02-12 | Outpatient (CLI) | payer MEDICARE, OTHER, SELFPAY ==
[2025-02-12 17:50] LABS: PSA,Total- Diagnostic 2.17 ng/mL (0.00-4.00)
== END | disposition home or self-care (01) ==
LOC: LAB 15:27
PROVIDERS: PCP Internal Medicine; Referring Provider Urology; Visit Provider Urology
DX: R97.20 Elevated prostate specific antigen [PSA] (principal)
CPT/HCPCS: 36415; 84153

== ENCOUNTER 2025-03-05 08:24 | Emergency (ER) | payer MEDICARE, OTHER, SELFPAY ==
[2025-03-05 08:25] VITALS: BP 141/51; PULSE 64; RESP 18; TEMP 37.2; O2SAT 98; BMI 24.5
[2025-03-05] MEDS: Tetracaine 0.5% Ophthalmic Bottle 1 DRP OPHTHALMIC (09:34)
--- NOTE | 2025-03-05 09:45 | EDS_ITS ---
HPI History of Present Illness Chief Complaint: Eye Problem Narrative Narrative: Chief complaint and HPI: 89-year-old male with past medical history of HTN, HLD, hypothyroidism, aortic valve stenosis presents for evaluation of left eye itching and irritation. Patient states he woke up this morning with his left eye itching and feeling dry. He denies any injury to the eye. Denies any eye pain. Denies any vision changes. Wears reading glasses. Does not wear contacts. Denies any fever, chills, headache, sinus pressure, URI symptoms, shortness of breath, chest pain. Review of systems: See HPI Medications: As listed on the chart Allergies: As listed on the chart PFSH: Per chart Vital signs: As listed on the chart. Reviewed. Physical exam: Gen: A&O x3, NAD Head: Normocephalic, atraumatic Eye: No periorbital swelling or ecchymosis however there is mild edema to the upper eyelid of the left eye, no proptosis, no pain with extra ocular movements, EOMI intact, PERRLA, no lacerations, mild sclera injection of the left eye, no foreign body, no teardrop pupil, no enophthalmos, no purulence or drainage. A fluorescein dye was instilled and under UV light no uptake was identified, negative Seidels sign. Intraocular pressure was 15. Visual Acuity 20/30 left eye, 20/20 bilaterally. ENT: TMs clear BL, moist mucous membranes, posterior oropharynx unremarkable, no nasal congestion, no sinus tenderness Neck: Trachea midline, No JVD, Full ROM, No meningismus CV: Regular rate Resp: Nonlabored respirations Musc: Full ROM, no deformity Skin: Warm, dry, no rash Neuro: Alert, oriented, grossly intact, sensation intact Psych: Cooperative, appropriate mood and affect [facility] Medical History Skin cyst Elevated serum creatinine Pneumonia involving right lung Aortic valve stenosis with insufficiency Right hip pain Low back pain Sebaceous cyst Bicipital tendinitis of right shoulder Bilateral carotid artery stenosis prostate bladder surgery cartidarectomy Cholecystectomy planned Self-catheterizes urinary bladder Asthma Gout Neurogenic bladder Essential hypertension Other and unspecified hyperlipidemia Hypothyroidism Home Medications ?Medication ?Instructions ?Recorded ?Last Taken ?Type aspirin 81 mg tablet,delayed 81 mg PO DAILY 06/18/20 U nknown History release (Adult Low Dose Aspirin) cholecalciferol (vitamin D3) 25 25 mcg PO DAILY Unknown History mcg (1,000 unit) capsule d-mannose ea PO 06/18/20 Unknown Histo ry lactobacillus combination no.8 3 3,000 mmu cells PO DA ZACK 06/18/20 Unknown History billion cell capsule (Adult Probiotic) multivitamin with iron (Daily 1 tab PO DAILY 06/18/20 Unknown History Multiple Vitamins with Iron tablet) fluticasone propionate 50 1 spray intranasal DAILY PRN 10/20/22 Unknown History mcg/actuation nasal spray,suspension (Flonase Allergy Relief) cranberry 500 mg capsule 500 mg PO DAILY 12/15/22 Unk nown History famotidine 10 mg tablet 10 mg PO DAILY 12/15/22 Unkn own History dutasteride 0.5 mg capsule 0.5 mg PO DAILY 04/07/23 Un known History Kenalog 40 mg/mL suspension for 40 mg intra-articular ONCE #1 mL 04/26/23 Unknown Clinic injection (triamcinolone acetonide) cetirizine 10 mg capsule (Zyrtec) 10 mg PO DAILY PRN 0 12/28/23 Unknown History atorvastatin 40 mg tablet (Lipitor) 40 mg PO DAILY #90 tabs 04/02/24 Unknown Rx ramipril 10 mg capsule (Altace) 10 mg PO DAILY #90 cap s 04/02/24 Unknown Rx levothyroxine 100 mcg tablet 100 mcg PO DAILY #90 tabs 11/28/24 Unknown Rx (Synthroid) ezetimibe 10 mg tablet (Zetia) 10 mg PO DAILY #90 tabs 01/14/25 Unknown Rx prednisone 10 mg tablet 10 mg PO .COMPLEX PRN Gout #35 01/28/25 Unknown Rx tabs Allergy/AdvReac Type Severity Reaction Status Date / Time azelastine Allergy Severe Rash Verified 03/05/25 08:25 nitrofurantoin (From Allergy Mild Rash Verified 03/05/25 08:25 Macrobid) Family History Other CVA (cerebral vascular accident) Diabetes Heart disease Hypertension Surgical History Hernia S/P appendectomy Social History Smoking Status: Former smoker alcohol intake: current alcohol intake frequency: a few times a month substance use type: does not use EXAM Physical Exam Const Vital Signs: 03/05/25 08:25 Temperature 98.9 F Temperature Source Oral Pulse Rate 64 Respiratory Rate 18 Blood Pressure 141/51 H Blood Pressure Mean 81 Pulse Ox 98 Oxygen Delivery Method Room Air MDM MDM MDM Narrative Medical decision making narrative: 89-year-old male with past medical history of HTN, HLD, hypothyroidism, aortic valve stenosis presents for evaluation of left eye itching and irritation. Patient states he woke up this morning with his left eye itching and feeling dry. He denies any injury to the eye. Denies any eye pain. Denies any vision changes. Wears reading glasses. Does not wear contacts. On presentation, patient no acute distress. Nontoxic-appearing. Physical exam is unremarkable except for some mild scleral injection of the left eye and mild upper eyelid edema of the left eye. Differential diagnosis includes but is not limited to allergic conjunctivitis, viral conjunctivitis, early bacterial conjunctivitis. Recommended [id number] Benadryl and daily allergy medicine for suspected allergic conjunctivitis. Will prescribe a 7-day course of erythromycin drops to cover for possible early bacterial conjunctivitis. Follow-up with eye doctor. Patient confirmed understanding of plan. Patient able to discharge home. Impression: 1. Left eye itching and irritation, suspect allergic conjunctivitis Discharge Plan Triage Chief Complaint: Eye Problem ED Provider: Ariel Velazquez Dx/Rx/DC Orders Prescriptions: No Action aspirin [Adult Low Dose Aspirin] 81 mg tablet,delayed release (DR/EC) 81 mg PO DAILY cholecalciferol (vitamin D3) 25 mcg (1,000 unit) capsule 25 mcg PO DAILY Adult Probiotic 3 billion cell capsule 3,000 mmu cells PO DAILY Rx Instructions: administer with a meal d-mannose Powder PO multivitamin with iron [Daily Multiple Vitamins/Iron] Tablet 1 tab PO DAILY cranberry 500 mg capsule 500 mg PO DAILY Rx Instructions: administer with meals famotidine 10 mg tablet 10 mg PO DAILY fluticasone propionate [Flonase Allergy Relief] 50 mcg/actuation spray,suspension 1 spray intranasal DAILY PRN Rx Instructions: administer into each nostril dutasteride 0.5 mg capsule 0.5 mg PO DAILY triamcinolone acetonide [Kenalog] 40 mg/mL suspension 40 mg intra-articular ONCE Qty: 1 0RF Zyrtec 10 mg capsule 10 mg PO DAILY PRN ramipril [Altace] 10 mg capsule 10 mg PO DAILY Qty: 90 3RF atorvastatin [Lipitor] 40 mg tablet 40 mg PO DAILY Qty: 90 3RF levothyroxine [Synthroid] 100 mcg tablet 100 mcg PO DAILY Qty: 90 3RF ezetimibe [Zetia] 10 mg tablet 10 mg PO DAILY Qty: 90 3RF prednisone 10 mg tablet 10 mg PO .COMPLEX PRN (Reason: Gout ) Qty: 35 2RF Rx Instructions: 10 mg orally ; 40mg x5 days, 20mg x5 days, 10mg x5 days PRN; Primary Care Provider: Karen Davis Referrals: Karen Davis MD [Primary Care Provider] - Print Language: Turkish
[2025-03-05] MEDS: Erythromycin Base 1 OPTH.TUBE 1 APPLIC LEFT EYE (10:08)
[2025-03-05 10:09] VITALS: BP 141/51; PULSE 64; RESP 18; TEMP 37.2; O2SAT 98
== END 2025-03-05 10:10 | disposition home or self-care (01) ==
LOC: ED 09:58
PROVIDERS: Emergency Provider Surgery; PCP Internal Medicine; Visit Provider Surgery
DX: H57.89 Other specified disorders of eye and adnexa (principal); I10 Essential (primary) hypertension; Z97.3 Presence of spectacles and contact lenses; Z82.49 Family history of ischemic heart disease and other diseases of the circulatory system; E78.5 Hyperlipidemia, unspecified; Z87.891 Personal history of nicotine dependence; E03.9 Hypothyroidism, unspecified
CPT/HCPCS: 99283

== ENCOUNTER → 2025-04-09 | Outpatient (CLI) | payer MEDICARE, OTHER, SELFPAY ==
[2025-04-09 16:02] LABS: Anion Gap 10 (5-15); BUN 22 mg/dL (4-19); BUN/Creat Ratio 17.8 RATIO (10-20); Calcium,Total 9.6 mg/dL (7.6-11.0); Carbon Dioxide 24.8 mmol/L (21.0-32.0); Chloride 104 mmol/L (98-108); Glucose 166 mg/dL (70-99); Potassium 4.5 mmol/L (3.3-5.1)
[2025-04-09 17:44] LABS: CRP < 3.00 mg/L (0.0-3.0); Uric Acid 7.4 mg/dL (3.5-7.2)
== END | disposition home or self-care (01) ==
LOC: LAB 13:52
PROVIDERS: PCP Internal Medicine; Referring Provider Internal Medicine; Visit Provider Internal Medicine
DX: M10.9 Gout, unspecified (principal)
CPT/HCPCS: 36415; 80048; 84550; 85652; 86140

== ENCOUNTER → 2025-05-15 | Outpatient (CLI) | payer MEDICARE, OTHER, SELFPAY ==
[2025-05-15 14:11] LABS: Hematocrit 39.3 % (40-54); Hemoglobin 13.0 g/dL (13.0-16.5); Immature Granulocytes Count 0.040 X10^3/uL (0.0-0.0); Mean Corp Hgb Conc 33.1 g/dL (32-36); Mean Corpuscular Volume 100.8 fL (80-94); Mean Platelet Vol. 9.6 fl (6.2-12.0); NRBC Flagged by Analyzer 0 % (0-5); Platelet Count 220 K/mm3 (150-450); RBC Distribution Width CV 12.3 % (11.6-14.6); RBC Distribution Width SD 46.0 fl (35.1-43.9); Red Blood Count 3.90 M/mm3 (4.6-6.2); White Blood Count 10.2 K/mm3 (4.4-11.0)
[2025-05-15 14:51] LABS: AST(SGOT) 22 U/L (<=37); Alanine Aminotransfer ALT/SGPT 27 U/L (<=46); Albumin, Serum 4.2 g/dL (3.4-4.8); Alkaline Phosphatase 50 U/L (40-129); Anion Gap 10 (5-15); BUN 23 mg/dL (4-19); BUN/Creat Ratio 16.6 RATIO (10-20); Calcium,Total 9.6 mg/dL (7.6-11.0); Carbon Dioxide 26.6 mmol/L (21.0-32.0); Chloride 101 mmol/L (98-108); Globulin 2.4 g/dL (2.2-4.2); Glucose 132 mg/dL (70-99); Potassium 4.5 mmol/L (3.3-5.1); Uric Acid 5.6 mg/dL (3.5-7.2)
== END | disposition home or self-care (01) ==
LOC: LAB 13:44
PROVIDERS: PCP Internal Medicine; Referring Provider Internal Medicine; Visit Provider Internal Medicine
DX: R79.89 Other specified abnormal findings of blood chemistry (principal); M10.9 Gout, unspecified; E03.9 Hypothyroidism, unspecified; I10 Essential (primary) hypertension; E78.5 Hyperlipidemia, unspecified
CPT/HCPCS: 36415; 80053; 84550; 85025

== ENCOUNTER → 2025-05-21 | Outpatient (CLI) | payer MEDICARE, OTHER, SELFPAY ==
--- NOTE | 2025-05-21 10:00 | VDLE_ITS ---
Reason For Study Reason For Study: Left leg pain RIGHT LEFT CFV is compressible, spontaneous, phasic, competent GSV is normal. and demonstrates normal augmentation. CFV is compressible, spontaneous, phasic, competent, Procedure and demonstrates normal augmentation. This is a venous duplex using B-mode, color flow and FV is compressible, spontaneous, phasic, competent spectral Doppler. and demonstrates normal augmentation. Exam performed in department. POP V is compressible, spontaneous, phasic, competent A preliminary report was called and/or faxed to and demonstrates normal augmentation. Ryan. T/P Trunk is compressible. PTV is compressible. LT PerV is compressible. VL/Venous Duplex US, Unilateral Interpretation Summary Deep veins of the left lower extremity are patent and compressible segmentally. There is no evidence of left lower extremity deep vein thrombosis. The left great saphenous vein appears patent an d compressible segmentally. Ordering Physician: Karen Davis Referring Physician: Karen Davis Performed By: Jennifer Soriano RVT
== END | disposition home or self-care (01) ==
LOC: CVS 09:59
PROVIDERS: PCP Internal Medicine; Referring Provider Internal Medicine; Visit Provider Internal Medicine
DX: M79.662 Pain in left lower leg (principal); I70.92 Chronic total occlusion of artery of the extremities
CPT/HCPCS: 93971

== ENCOUNTER → 2025-05-28 | Outpatient (CLI) | payer MEDICARE, OTHER, SELFPAY ==
--- NOTE | 2025-05-28 10:42 | ART_ITS ---
Reason For Study Reason For Study: BLE PAIN Procedure A bilateral lower extremity continuous wave Doppler with analog waveform analysis and ankle brachial indexes. Left Segmental Pressures Left brachial= 108mmHg. Left posterior tibial artery = 137mmHg. Left dorsalis pedis artery = 130mmHg. The left posterior tibial artery waveforms are triphasic. The left dorsalis pedis waveforms are triphasic. Right Segmental Pressures Right brachial= 105mmHg. Right posterior tibial artery = 132mmHg. Right dorsalis pedis artery = 129mmHg. The right posterior tibial artery waveforms are triphasic. The right dorsalis pedis waveforms are triphasic. Indices The right resting ankle brachial index is 1.22. The right ankle brachial index by the posterior tibial artery is 1.22. The right ankle brachial index by the dorsalis pedis is 1.19. The left resting ankle brachial index is 1.27. The left ankle brachial index by the posterior tibial artery is 1.27. The left ankle brachial index by the dorsalis pedis is 1.20. VL/Ankle Brachial Index Interpretation Summary Right MALENA 1.22, normal. Doppler/PVR waveforms of the right ankle normal at rest . Left MALENA 1.27, normal. Doppler/PVR waveforms of the left ankle normal at rest. Ordering Physician: Karen Thomas Referring Physician: KAREN THOMAS MD Performed By: Tanya Noe RVT, RDCS
== END | disposition home or self-care (01) ==
LOC: CVS 10:41
PROVIDERS: PCP Internal Medicine; Referring Provider Internal Medicine; Visit Provider Internal Medicine
DX: I73.9 Peripheral vascular disease, unspecified (principal); I77.9 Disorder of arteries and arterioles, unspecified
CPT/HCPCS: 93922